=== PATIENT | male | born 1995 | race American Indian/Alaskan Native ===

== ENCOUNTER 2017-12-20 11:48 | Emergency (ER) | payer SELFPAY ==
[2017-12-20 11:43] VITALS: BMI 27.5
[2017-12-20 12:07] VITALS: RESP 18; TEMP 98.1; O2SAT 100
[2017-12-20] MEDS ORDERED: Sodium Chloride 0.9% 1,000 ML IV STA (12:17)
[2017-12-20 12:48] LABS: BASO # 0.02 K/mm3 (0.0-2.0); BASO % 0.6 % (0.0-3.0); EOS # 0.1 (0.0-0.7); EOS % 1.8 % (1.5-5.0); GRAN # 1.06 (1.4-6.5); GRAN % 31.9 % (50.0-68.0); HEMOGLOBIN 13.8 g/dL (14.0-18.0); LYMPH # 1.8 (1.2-3.4); LYMPH % 52.7 % (22.0-35.0); MEAN CELL VOLUME 88.9 fl (80.0-105.0); MEAN CORPUSCULAR HEMOGLOBIN 31.2 pg (25.0-35.0); MEAN PLATELET VOLUME 8.7 fl (7.0-11.0); MONO # 0.4 (0.1-0.6); RBC 4.43 10^6/uL (3.5-6.1); WHITE BLOOD COUNT 3.3 10^3/ul (4.5-11.0)
--- NOTE | 2017-12-20 12:51 | ED PDOC ---
Arrival/HPI <Alex Jones - Last Filed: 12/20/17 14:49> <Jack Bullock - Last Filed: 12/21/17 07:24> - General Chief Complaint: Dizziness/Lightheaded Time Seen by Provider: 12/20/17 12:07 - History of Present Illness Narrative History of Present Illness (Text): 12/20/17 12:45 Pt is a 21 yo M with PMH of PTSD presents to ED with dizziness for the past 1-2 days. Pt states that he's felt sick since moving here for [place] about 2 weeks ago. He states he's had a headache, subjective/intermittent fevers, and generalized malaise. Pt states that over the last 1-2 days he's been complaining of more fatigued, dizziness, chills, dysuria, dark urine, nausea/ vomiting, and decreased PO intake. Pt also complains of diffuse body aches. Pt states he worked out yesterday, but not more so than usual. Pt denies any recent sick contacts. Of note, patient was evaluated in ED in [place] in September for dehydration. Pt states he received IVF and felt much better. Currently, pt denies CP, SOB, fever, DUARTE. PMD: None (Alex Jones) Past Medical History - Provider Review Nursing Documentation Reviewed: Yes - Cardiac Hx Cardiac Disorders: No - Pulmonary Hx Respiratory Disorders: No - Neurological Hx Dizziness: Yes - HEENT Hx HEENT Disorder: No - Renal Hx Renal Disorder: No - Endocrine/Metabolic Hx Endocrine Disorders: Yes Hx Diabetes Mellitus Type 2: Yes - Hematological/Oncological Hx Blood Disorders: No - Integumentary Hx Dermatological Disorder: No - Musculoskeletal/Rheumatological Hx Musculoskeletal Disorders: Yes Other/Comment: c/o of chronic generalized body pain. - Gastrointestinal Hx Gastrointestinal Disorders: No - Genitourinary/Gynecological Hx Genitourinary Disorders: No - Psychiatric Hx Post Traumatic Stress Disorder: Yes Hx Substance Use: Yes - Anesthesia Hx Anesthesia: No <Alex Jones - Last Filed: 12/20/17 14:49> Family/Social History - Physician Review Nursing Documentation Reviewed: Yes Family/Social History: No Known Family HX Smoking Status: Never Smoked Hx Alcohol Use: No Hx Substance Use: Yes Substance used: Marijuana <Alex Jones - Last Filed: 12/20/17 14:49> Allergies/Home Meds <Alex Jones - Last Filed: 12/20/17 14:49> <Jack Bullock - Last Filed: 12/21/17 07:24> Allergies/Adverse Reactions: Allergies No Known Allergies Allergy (Verified 12/20/17 11:44) Home Medications: Home Meds Medication Instructions Recorded Confirmed No Known Home Med 12/20/17 12/20/17 Review of Systems - Physician Review All systems were reviewed & negative as marked: Yes - Review of Systems Constitutional: Fatigue, Other (chills). absent: Fevers Eyes: Normal ENT: Normal Respiratory: Normal. absent: SOB, Cough Cardiovascular: Normal. absent: Chest Pain, Palpitations Gastrointestinal: Abdominal Pain, Diarrhea, Nausea, Vomiting Genitourinary Male: Normal Musculoskeletal: Myalgias (diffuse) Skin: Normal Neurological: Normal Endocrine: Normal Hemo/Lymphatic: Normal Psychiatric: Normal <Alex Jones - Last Filed: 12/20/17 14:49> Physical Exam Vital Signs Reviewed: Yes Temperature: Afebrile Blood Pressure: Normal Pulse: Regular Respiratory Rate: Normal Appearance: Positive for: Uncomfortable Pain Distress: Mild Mental Status: Positive for: Alert and Oriented X 3 Finger Stick Blood Glucose: 86 - Systems Exam Head: Present: Atraumatic, Normocephalic Extroacular Muscles: Present: EOMI Mouth: Present: Dry Pharnyx: Present: Normal Neck: Present: Normal Range of Motion Respiratory/Chest: Present: Clear to Auscultation. No: Respiratory Distress, Accessory Muscle Use, Wheezes, Rales, Rhonchi Cardiovascular: Present: Regular Rate and Rhythm, Normal S1, S2. No: Murmurs, Rub, Gallop Abdomen: Present: Tenderness. No: Distention, Peritoneal Signs, Rebound, Guarding Back: Present: Normal Inspection Upper Extremity: Present: Normal Inspection Lower Extremity: Present: Normal Inspection Neurological: Present: GCS=15 Skin: Present: Warm, Dry Psychiatric: Present: Alert, Oriented x 3 <Alex Jones - Last Filed: 12/20/17 14:49> Vital Signs Temp Pulse Resp BP Pulse Ox 12/20/17 14:53 65 18 109/65 100 12/20/17 13:30 74 18 125/69 100 12/20/17 11:41 98.1 F 84 18 127/74 100 Medical Decision Making <Alex Jones - Last Filed: 12/20/17 14:49> <Jack Bullock - Last Filed: 12/21/17 07:24> ED Course and Treatment: 12/20/17 12:55 Assessment: 21 M with PMH of PTSD presents to ED with diffuse body aches and dizziness. Plan: - CBC, CMP - BNP - Cardiac iso - Acetaminophen, serum - ASA, serum - Alcohol, serum - UDS - Coags - Influenza - CXR - CT head - 1L NS bolus - EKG - UA 12/20/17 13:53 Labs unremarkable except for slight elevation in CPK. CT head as read by radiologist is normal. EKG showed NSR, rate 92. 12/20/17 14:28 CXR as read by radiologist shows no active disease. 12/20/17 14:40 Progress Note: Pt reassessed. Pt states that he feels much better after receiving NS bolus. Pt admits to mimimal fluid intake over the last few days and working out "hard" yesterday. Pt advised to maintain adequate fluid hydration and to minimize work out until follow up. Referred patient to [facility] for follow up and to monitor PTSD. Impression: Dehydration (Alex Jones) 12/20/17 14:09 Pt is a 21 year old male, who presents to the Emergency department for generalized body ache and dizziness. In agreement with resident note, which includes further HPI details. Patient was seen and evaluated with resident, came up with plan and treatment together. Patient reports symptoms for over two weeks. On exam, he is ambulatory, able to use his cellphone with no obvious limitations in dexterity. Visual acuity and visual hilton are intact. No limitations of extraocular movements. No headache on re-evaluation. States similar episode in [place] which improved after iv fluids. He denies any drugs or new medications. No edema or erythema noted on skin/muscle exam. He states he "works out" and "lifted weights yesterday" without difficulty. Plan to iv hydrate, check labs, reassess, serial exams. On re-exam after iv fluids patient is completely asymptomatic, smiling, ambulatory, denies pain or discomfort. Patient admits "maybe I worked out too hard yesterday". I stressed need for proper hydration. Labs reviewed with patient. No chest pain. Denies depression or suicidal or homicidal ideation. Will d/c with plan to follow-up at clinic for further follow-up as necessary. (Jack Bullock) - Lab Interpretations Lab Results: 12/20/17 12:42 12/20/17 12:42 Lab Results 12/20/17 13:38: Urine Opiates Screen Negative, Urine Methadone Screen Negative, Ur Barbiturates Screen Negative, Ur Phencyclidine Scrn Negative, Ur Amphetamines Screen Negative, U Benzodiazepines Scrn Negative, U Oth Cocaine Metabols Negative, U Cannabinoids Screen Positive H 12/20/17 13:38: Urine Color Light yellow, Urine Appearance Clear, Urine pH 8.0, Ur Specific Elmo 1.015, Urine Protein Negative, Urine Glucose (UA) Negative, Urine Ketones Negative, Urine Blood Negative, Urine Nitrate Negative, Urine Bilirubin Negative, Urine Urobilinogen 0.2, Ur Leukocyte Esterase Negative 12/20/17 12:42: Alcohol, Quantitative < 10 12/20/17 12:42: Salicylates < 1 L, Acetaminophen < 10.0 L 12/20/17 12:42: PT 12.1, INR 1.05, APTT 26.6 12/20/17 12:42: Influenza Typ A,B (EIA) Negative for flu a/b 12/20/17 12:42: WBC 3.3 L, RBC 4.43, Hgb 13.8 L, Hct 39.4 L, MCV 88.9, MCH 31.2 , MCHC 35.0, RDW 12.0, Plt Count 363, MPV 8.7, Gran % 31.9 L, Lymph % (Auto) 52.7 H, Mcclain % (Auto) 13.0 H, Eos % (Auto) 1.8, Baso % (Auto) 0.6, Gran # 1.06 L , Lymph # (Auto) 1.8, Mcclain # (Auto) 0.4, Eos # (Auto) 0.1, Baso # (Auto) 0.02 12/20/17 12:42: Sodium 142, Potassium 3.9, Chloride 104, Carbon Dioxide 24, Anion Gap 17, BUN 17, Creatinine 1.1, Est GFR ( Amer) > 60, Est GFR (Non- Af Amer) > 60, Random Glucose 94, Calcium 10.2, Magnesium 2.0, Total Bilirubin 0.8, AST 34, ALT 38, Alkaline Phosphatase 70, Lactate Dehydrogenase 447, Total Creatine Kinase 492 H, CK-MB (CK-2) 1.5, CK-MB (CK-2) % Cancelled, Troponin I < 0.01, NT-Pro-B Natriuret Pep 28.2, Total Protein 7.5, Albumin 4.3, Globulin 3.2 , Albumin/Globulin Ratio 1.4 12/20/17 12:30: POC Glucose (mg/dL) 86 - RAD Interpretation Radiology Orders: 12/20/17 12:14 HEAD W/O CONTRAST [CT] Stat 12/20/17 12:16 CHEST ONE VIEW [RAD] Stat - Medication Orders Current Medication Orders: Discontinued Medications Sodium Chloride (Sodium Chloride 0.9%) 1,000 mls @ 1,000 mls/hr IV .Q1H STA Stop: 12/20/17 13:16 Last Admin: 12/20/17 12:20 Dose: 1,000 mls/hr eMAR Start Stop Document 12/20/17 12:20 RG (Rec: 12/20/17 13:28 RG [id number]) Intravenous Solution Start Date 12/20/17 Start Time 12:20 End Date 12/20/17 End time 13:20 Total Infusion Time 60 - PA / ACCESS ANALYST / Resident Statement MIHAI has reviewed & agrees with the documentation as recorded. MIHAI has examined the patient and agrees with the treatment plan. <Jack Bullock - Last Filed: 12/21/17 07:24> Disposition/Present on Arrival - Present on Arrival Any Indicators Present on Arrival: No History of DVT/PE: No History of Uncontrolled Diabetes: No Urinary Catheter: No History of Decub. Ulcer: No History Surgical Site Infection Following: None - Disposition Have Diagnosis and Disposition been Completed?: Yes Disposition Time: 14:43 Patient Plan: Discharge <Alex Jones - Last Filed: 12/20/17 14:49> <Jack Bullock - Last Filed: 12/21/17 07:24> - Disposition Diagnosis: Dehydration Disposition: HOME/ ROUTINE Condition: IMPROVED Discharge Instructions (ExitCare): Dehydration, Adult (DC) Additional Instructions: 1. Maintain adequate hydration 2. Follow up with [facility] within 1 week 3. Minimize strenuous exercise until follow up with PMD 4. Return to ED if symptoms worsen Referrals: PCP,NO [Primary Care Provider] - Follow up with primary [facility] [place] [Outside] - Follow up with primary [facility] [Outside] - Follow up with primary Forms: [employer] (Italian)
[2017-12-20 12:55] LABS: INR 1.05 (0.93-1.08); PARTIAL THROMBOPLASTIN TIME 26.6 Seconds (25.1-36.5); PROTHROMBIN TIME 12.1 SECONDS (9.4-12.5)
[2017-12-20 12:58] LABS: ACETAMINOPHEN < 10.0 ug/ml (10.0-20.0); SALICYLATE < 1 mg/dL (2.0-20.0)
[2017-12-20 12:59] LABS: ALB/GLOB RATIO 1.4 (1.1-1.8); ALBUMIN 4.3 g/dL (3.0-4.8); ALT/SGPT 38 U/L (7-56); AST/SGOT 34 U/L (17-59); BLOOD UREA NITROGEN 17 mg/dL (7-21); CALCIUM 10.2 mg/dL (8.4-10.5); GFR AFRICAN-AMERICAN > 60; GFR NON-AFRICAN AMERICAN > 60
[2017-12-20 13:10] LABS: B-TYPE NATRIURETIC PEPTIDE 28.2 pg/mL (0-450); TROPONIN I < 0.01 ng/mL
[2017-12-20 13:25] LABS: CK-MB 1.5 ng/mL (0.0-3.6)
[2017-12-20 13:47] LABS: URINE APPEARANCE CLEAR (CLEAR); URINE BILIRUBIN NEGATIVE (NEGATIVE); URINE BLOOD NEGATIVE (NEGATIVE); URINE COLOR LIGHT YELLOW (YELLOW); URINE GLUCOSE (UA) NEGATIVE (NEGATIVE); URINE LEUKOCYTE ESTERASE NEGATIVE Leu/uL (NEGATIVE); URINE NITRATE NEGATIVE (NEGATIVE); URINE PROTEIN NEGATIVE mg/dL (<30 mg/dL); URINE UROBILINOGEN 0.2 E.U./dL (<1 E.U./dL)
--- NOTE | 2017-12-20 13:51 | CT ---
PROCEDURE: CT HEAD WITHOUT CONTRAST. HISTORY: headache, dizzy COMPARISON: None available. TECHNIQUE: Axial computed tomography images were obtained through the head/brain without intravenous contrast. Radiation dose: Total exam DLP = 858 mGy-cm. This CT exam was performed using one or more of the following dose reduction techniques: Automated exposure control, adjustment of the mA and/or kV according to patient size, and/or use of iterative reconstruction technique. FINDINGS: HEMORRHAGE: No intracranial hemorrhage. BRAIN: No mass effect or edema. No atrophy or chronic microvascular ischemic changes. VENTRICLES: Unremarkable. No hydrocephalus. CALVARIUM: Unremarkable. PARANASAL SINUSES: Unremarkable as visualized. No significant inflammatory changes. MASTOID AIR CELLS: Unremarkable as visualized. No inflammatory changes. OTHER FINDINGS: None. IMPRESSION: Normal CT of the Head.
--- NOTE | 2017-12-20 14:22 | RAD ---
PROCEDURE: CHEST RADIOGRAPH, 1 VIEW HISTORY: weakness COMPARISON: None available. FINDINGS: LUNGS: Clear. PLEURA: No pneumothorax or pleural fluid seen. CARDIOVASCULAR: Normal. OSSEOUS STRUCTURES: No significant abnormalities. VISUALIZED UPPER ABDOMEN: Normal. OTHER FINDINGS: None. IMPRESSION: No active disease.
[2017-12-20 14:48] LABS: BARBITURATES, UR NEGATIVE (NEGATIVE); BENZODIAZEPINES, UR NEGATIVE (NEGATIVE); OPIATES, UR NEGATIVE (NEGATIVE); PHENCYCLIDINE, UR NEGATIVE (NEGATIVE)
[2017-12-20 14:54] VITALS: BP 109/65; PULSE 65
--- NOTE | 2017-12-21 11:53 | CARD ---
APPROVED REPORT EKG Measurement Heart [id number] <Conclusion> Normal sinus rhythm Rightward axis Borderline ECG
== END 2017-12-20 14:45 | disposition home or self-care (01) ==
LOC: ED 11:48
DX: E86.0 Dehydration (principal); E11.9 Type 2 diabetes mellitus without complications
CPT/HCPCS: 70450; 71045; 80053; 81003; 82550; 82553; 82948; 83615; 83735; 83880; 84484; 85025; 85610; 85730; 87804; 93005; 96360; 99285; G0480; J7040